=== PATIENT | female | born 1970 | race Caucasian/White ===

== ENCOUNTER → 2017-01-31 | Outpatient (CLI) | payer OTHER ==
--- NOTE | 2017-01-31 09:01 | RAD ---
Left breast ultrasound, 01/31/2017: History: Follow-up breast nodules Comparison is made to a previous study from 07/31/2016. The 2 nodules identified on the previous study were targeted on today's exam. At the 2:00 location proximally 5 cm from the nipple again noted is a small smooth hypoechoic nodule. It measures 6 mm in greatest diameter. At the 4:00 location approximately 6 cm from the nipple there is an additional smooth hypoechoic nodule currently measuring 5 mm in greatest diameter. Allowing for technical differences, both nodules have shown no significant change. No new abnormality is detected. IMPRESSION: Unchanged small left breast nodules as described above, most likely complicated cysts or fibroadenomas. Further sonographic surveillance in 6 months at the time of the patient's routine yearly mammography is suggested. BI-RADS 3-probably benign findings
== END | disposition home or self-care (01) ==
LOC: KCIC US 07:45
PROVIDERS: ATTEND Nurse Practitioner Family
DX: R92.8 Other abnormal and inconclusive findings on diagnostic imaging of breast (principal)
CPT/HCPCS: 76641